=== PATIENT | female | born 1995 | race Caucasian/White ===

== ENCOUNTER 2017-05-02 20:19 | Observation (INO) | payer OTHER ==
[2017-05-02 21:37] LABS: ABSOLUTE EOSINOPHILS # (AUTO) 0.1 10^3/uL (0.0-0.6); ABSOLUTE LYMPHOCYTES (AUTO) 1.4 10^3/uL (0.5-4.7); ABSOLUTE MONOCYTES (AUTO) 0.5 10^3/uL (0.1-1.4); ABSOLUTE NEUT (AUTO) 1.6 10^3/uL (1.7-8.2); BASOPHILS % (AUTO) 1.1 % (0-2); EOSINOPHILS % (AUTO) 1.6 % (0-6); HEMATOCRIT 34.9 % (36.0-47.0); HEMOGLOBIN 12.7 g/dL (12.0-15.5); HGB HCT DIFFERENCE 3.2; LYMPHOCYTES % (AUTO) 38.8 % (13-45); MEAN CORPUSCULAR HEMOGLOBIN 33.3 pg (27.0-33.4); MEAN CORPUSCULAR HGB CONC 36.6 g/dL (32.0-36.0); MEAN CORPUSCULAR VOLUME 91 fl (80-97); MONOCYTES % (AUTO) 13.2 % (3-13); RED BLOOD COUNT 3.83 10^6/uL (3.72-5.28); RED CELL DISTRIBUTION WIDTH 12.9 % (11.5-14.0); SEGMENTED NEUTROPHILS % (AUTO) 45.3 % (42-78); WHITE BLOOD COUNT 3.6 10^3/uL (4.0-10.5)
[2017-05-02 21:53] LABS: ALANINE AMINOTRANSFERASE 27 U/L (9-52); ALBUMIN 4.1 g/dL (3.5-5.0); ALKALINE PHOSPHATASE 66 U/L (38-126); ANION GAP 13 (5-19); ASPARTATE AMINO TRANSFERASE 16 U/L (14-36); BILIRUBIN,DIRECT 0.3 mg/dL (0.0-0.4); BILIRUBIN,TOTAL 1.5 mg/dL (0.2-1.3); BLOOD UREA NITROGEN 10 mg/dL (7-20); CALCIUM 9.3 mg/dL (8.4-10.2); CARBON DIOXIDE 23 mmol/L (22-30); CHLORIDE 102 mmol/L (98-107); GLUCOSE 95 mg/dL (75-110); POTASSIUM 3.9 mmol/L (3.6-5.0); SODIUM 137.8 mmol/L (137-145); TOTAL PROTEIN 7.1 g/dL (6.3-8.2)
[2017-05-02] MEDS ORDERED: ONDANSETRON HCL INJ/PF 4 MG/2 ML SDV ONE (22:02)
[2017-05-02] MEDS ORDERED: DEXTROSE 5%-LACTATED RINGERS 500 ML IV ONE (22:30)
[2017-05-02] MEDS ORDERED: ONDANSETRON HCL INJ/PF 4 MG/2 ML SDV IV ONE (22:30)
[2017-05-02] MEDS ORDERED: RINGERS SOLUTION,LACTATED 500 ML IV ONE (22:30)
[2017-05-02] MEDS: DEXTROSE 5%-LACTATED RINGERS 1,000 ML IV PRN (22:41)
[2017-05-03] MEDS: DEXTROSE 5%-LACTATED RINGERS 1,000 ML IV PRN (03:54)
[2017-05-03] MEDS ORDERED: LOPERAMIDE HCL 2 MG CAPSULE PO PRN (05:24)
[2017-05-03] MEDS ORDERED: LOPERAMIDE HCL 2 MG CAPSULE PO ONE (05:30)
[2017-05-03] MEDS ORDERED: LOPERAMIDE HCL 2 MG CAPSULE ONE (05:31)
--- NOTE | 2017-05-03 09:41 | PDOC PROGRESS REPORT ---
Subjective Progress Note for:: 05/03/17 Subjective:: Pt no longer vomiting and diarrhea resolved with imodium. Has not tried food yet. Denies vag bleeding or pelvic pain. Physical Exam - Physical Exam Vital Signs: Temp Pulse Resp BP Pulse Ox 98.1 F 72 14 98/58 L 100 05/03/17 07:46 05/03/17 07:46 05/03/17 07:46 05/03/17 07:46 05/03/17 07:46 Intake & Output 05/02/17 05/03/17 05/04/17 06:59 06:59 06:59 Intake Total 0 Balance 0 Weight 42.7 kg General appearance: PRESENT: no acute distress GI/Abdominal exam: PRESENT: normal bowel sounds, soft. ABSENT: distended, guarding, mass, organolmegaly, rebound, tenderness Result Laboratory Results: 05/02/17 21:10 05/02/17 21:10 05/02/17 05/02/17 05/02/17 21:10 21:10 21:10 WBC 3.6 L RBC 3.83 Hgb 12.7 Hct 34.9 L MCV 91 MCH 33.3 MCHC 36.6 H RDW 12.9 Plt Count 239 Seg Neutrophils % 45.3 Lymphocytes % 38.8 Monocytes % 13.2 H Eosinophils % 1.6 Basophils % 1.1 Absolute Neutrophils 1.6 L Absolute Lymphocytes 1.4 Absolute Monocytes 0.5 Absolute Eosinophils 0.1 Absolute Basophils 0.0 Sodium 137.8 Potassium 3.9 Chloride 102 Carbon Dioxide 23 Anion Gap 13 BUN 10 Creatinine 0.50 L Est GFR ( Amer) > 60 Est GFR (Non-Af Amer) > 60 Glucose 95 Calcium 9.3 Total Bilirubin 1.5 H AST 16 ALT 27 Alkaline Phosphatase 66 Total Protein 7.1 Albumin 4.1 TSH 3.66 Assessment & Plan - Diagnosis (1) Hyperemesis Plan: trial of bland diet....if tolerates can heplock iv and change to po antiemetics
[2017-05-03 20:22] VITALS: BP 101/72
--- NOTE | 2017-05-03 20:58 | DISCHARGE SUMMARY E ---
Discharge Summary NAME: ALL WALKER : 1995 AGE: 22Y ADMITTED: 05/02/2017 DISCHARGED: 05/03/2017 INDICATION FOR ADMISSION: Nausea, vomiting, and diarrhea with dehydration and early . HOSPITAL COURSE: The patient is a 22-year-old G-2, P-1, who is admitted at 5+ weeks gestation. She had a several day history of nausea, vomiting, and diarrhea. She had apparently been at [facility] and received IV fluids there prior to this. During the course of her stay, she was initially n.p.o. Her diet was advanced and she, by the time of discharge, was tolerating p.o. She did receive a one-time dose of Imodium. By the time of discharge she was tolerating p.o. and not having any nausea, vomiting, or diarrhea. Her labs on admission were unremarkable. DISCHARGE DIAGNOSIS: Early with nausea, vomiting, and diarrhea, now resolved. DISCHARGE MEDICATIONS: 1. Phenergan 25 mg 1/2 to 1 p.o. q.i.d. p.r.n. #30, no refills. 2. Patient does have vitamins at home which she will continue. 3. She was advised that she may take over the counter B6 and Unisom for nausea as well. FOLLOWUP: 1. She will follow up in Clinic next week. 2. She will follow up sooner should problems arise. DICTATING PHYSICIAN: CRISTIAN COSME M.D. [id number] PHY#: [id number] ID: [id number] JOB#: [id number] ACCT: [id number] cc:CRISTIAN COSME M.D. >
== END 2017-05-03 20:57 | disposition home or self-care (01) ==
LOC: 2S 20:19
PROVIDERS: ADMIT Obstetrics & Gynecology; ATTEND Obstetrics & Gynecology
DX: O21.0 Mild hyperemesis gravidarum (principal); R19.7 Diarrhea, unspecified; O26.891 Other specified pregnancy related conditions, first trimester; Z3A.01 Less than 8 weeks gestation of pregnancy
CPT/HCPCS: 36415; 84443; 85025; 80053; G0378 ×2; G0379; J2405; J7120

== ENCOUNTER 2017-10-29 11:24 | Outpatient (CLI) | payer OTHER ==
[2017-10-29 12:27] LABS: AMNISURE (ROM) NEGATIVE (NEGATIVE)
[2017-10-29 12:27] LABS: APPEARANCE,URINE CLOUDY; BILIRUBIN,URINE NEGATIVE (NEGATIVE); COLOR,URINE YELLOW; GLUCOSE, URINE NEGATIVE (NEGATIVE); KETONES,URINE NEGATIVE (NEGATIVE); LEUKOCYTE ESTERASE,URINE LARGE (NEGATIVE); NITRITE,URINE POSITIVE (NEGATIVE); PROTEIN,URINE 100 mg/dL (NEGATIVE); URINE SPECIFIC GRAVITY 1.019
[2017-10-29 12:40] LABS: URINE AMPHETAMINES SCREEN NEGATIVE; URINE BARBITURATES SCREEN NEGATIVE; URINE BENZODIAZEPINES SCREEN NEGATIVE; URINE COCAINE SCREEN NEGATIVE; URINE MARIJUANA (THC) SCREEN NEGATIVE; URINE METHADONE SCREEN NEGATIVE; URINE PHENCYCLIDINE SCREEN NEGATIVE
[2017-10-29] MEDS ORDERED: CEFTRIAXONE 1 GM/D5W RTU 1 GM/50 ML RTUPB IV ONE (12:46)
[2017-10-29] MEDS ORDERED: RINGERS SOLUTION,LACTATED 1,000 ML IV PRN (12:46)
[2017-10-29] MEDS ORDERED: CEFTRIAXONE INJ 1000 MG VIAL ONE (12:59)
== END 2017-10-29 15:27 | disposition home or self-care (01) ==
LOC: LC 11:24
PROVIDERS: ATTEND Obstetrics & Gynecology
PROC: 4A1HXCZ Monitoring of Products of Conception, Cardiac Rate, External Approach (ICD-10-PCS; principal; 2017-10-29)
DX: O23.43 Unspecified infection of urinary tract in pregnancy, third trimester (principal); O47.03 False labor before 37 completed weeks of gestation, third trimester; Z3A.31 31 weeks gestation of pregnancy
CPT/HCPCS: 59899; 84112; 87086; 87088; 81001; 87186; 80307; J0696

== ENCOUNTER 2017-12-06 16:42 | Outpatient (CLI) | payer OTHER ==
[2017-12-06 17:27] LABS: APPEARANCE,URINE SLIGHTLY-CLOUDY; BILIRUBIN,URINE NEGATIVE (NEGATIVE); COLOR,URINE YELLOW; GLUCOSE, URINE NEGATIVE (NEGATIVE); KETONES,URINE NEGATIVE (NEGATIVE); LEUKOCYTE ESTERASE,URINE TRACE (NEGATIVE); NITRITE,URINE NEGATIVE (NEGATIVE); PROTEIN,URINE NEGATIVE (NEGATIVE); URINE SPECIFIC GRAVITY 1.029
[2017-12-06 17:34] LABS: AMNISURE (ROM) NEGATIVE (NEGATIVE)
[2017-12-06 17:43] LABS: URINE AMPHETAMINES SCREEN NEGATIVE; URINE BARBITURATES SCREEN NEGATIVE; URINE BENZODIAZEPINES SCREEN NEGATIVE; URINE COCAINE SCREEN NEGATIVE; URINE MARIJUANA (THC) SCREEN NEGATIVE; URINE METHADONE SCREEN NEGATIVE; URINE PHENCYCLIDINE SCREEN NEGATIVE
--- NOTE | 2017-12-06 18:04 | Non Stress Test Report ---
Non Stress Test Datetime Report Generated by CPN: 12/06/2017 18:04 DEMOGRAPHIC EGA NST: 36.6 INDICATION Indication for Study: Ordered by Provider MONITORING Monitor Explained: Monitor Explained; Test Explained; Patient Verbalized Understanding Time on Monitor: 12/06/2017 16:59 Time off Monitor: 12/06/2017 17:50 NST Duration: 51 NST INTERVENTIONS NST Interventions: PO Hydration; Reposition Patient Physician Notified NST: Dr. Funez BABY A: [id number] BABY A Movement : Present Contraction Frequency : none FHR Baseline : 140 Accelerations : 15X15 Decelerations : None Variability : Moderate 6-25bpm NST Review: Meets Criteria for Reactive NST NST Review and Verified By : Yessi Sweet RNC NST Results: Reactive NST REPORT Report Trigger: Send Report
== END 2017-12-06 18:04 | disposition home or self-care (01) ==
LOC: LC 16:42
PROVIDERS: ATTEND Obstetrics & Gynecology
PROC: 4A1HXCZ Monitoring of Products of Conception, Cardiac Rate, External Approach (ICD-10-PCS; principal; 2017-12-06)
DX: O47.03 False labor before 37 completed weeks of gestation, third trimester (principal); Z3A.36 36 weeks gestation of pregnancy
CPT/HCPCS: 59025; 80307; 81005; 84112

== ENCOUNTER 2017-12-14 14:30 | Outpatient (CLI) | payer OTHER ==
--- NOTE | 2017-12-14 14:57 | Non Stress Test Report ---
Non Stress Test Datetime Report Generated by CPN: 12/14/2017 14:56 DEMOGRAPHIC EGA NST: 38.0 INDICATION Indication for Study: Ordered by Provider MONITORING Monitor Explained: Monitor Explained; Test Explained; Patient Verbalized Understanding Time on Monitor: 12/14/2017 14:38 Time off Monitor: 12/14/2017 14:58 NST Duration: 20 NST INTERVENTIONS NST Interventions: PO Hydration; Reposition Patient Physician Notified NST: J Singh CNM BABY A: [id number] BABY A Movement : Present Contraction Frequency : 0 FHR Baseline : 135 Accelerations : 15X15 Decelerations : None Variability : Moderate 6-25bpm NST Review: Meets Criteria for Reactive NST NST Review and Verified By : Robbie Cornejo RNC NST Results: Reactive NST REPORT Report Trigger: Send Report
== END 2017-12-14 15:03 | disposition home or self-care (01) ==
LOC: LC 14:30
PROVIDERS: ATTEND Obstetrics & Gynecology
PROC: 4A1HXCZ Monitoring of Products of Conception, Cardiac Rate, External Approach (ICD-10-PCS; principal; 2017-12-14)
DX: Z34.83 Encounter for supervision of other normal pregnancy, third trimester (principal)
CPT/HCPCS: 59025

== ENCOUNTER 2017-12-21 04:19 | Inpatient (IN) | payer OTHER ==
[2017-12-21 04:54] LABS: APPEARANCE,URINE CLEAR; BILIRUBIN,URINE NEGATIVE (NEGATIVE); COLOR,URINE YELLOW; GLUCOSE, URINE NEGATIVE (NEGATIVE); KETONES,URINE NEGATIVE (NEGATIVE); LEUKOCYTE ESTERASE,URINE NEGATIVE (NEGATIVE); NITRITE,URINE NEGATIVE (NEGATIVE); PROTEIN,URINE NEGATIVE (NEGATIVE); URINE SPECIFIC GRAVITY 1.018
[2017-12-21 04:58] LABS: AMNISURE (ROM) NEGATIVE (NEGATIVE)
[2017-12-21 05:13] LABS: URINE AMPHETAMINES SCREEN NEGATIVE; URINE BARBITURATES SCREEN NEGATIVE; URINE BENZODIAZEPINES SCREEN NEGATIVE; URINE COCAINE SCREEN NEGATIVE; URINE MARIJUANA (THC) SCREEN NEGATIVE; URINE PHENCYCLIDINE SCREEN NEGATIVE
--- NOTE | 2017-12-21 06:00 | Non Stress Test Report ---
Non Stress Test Datetime Report Generated by CPN: 12/21/2017 05:59 DEMOGRAPHIC Test Number: 3 EGA NST: 39.0 INDICATION Indication for Study: Ordered by Provider MONITORING Monitor Explained: Monitor Explained; Test Explained; Patient Verbalized Understanding Time on Monitor: 12/21/2017 04:39 Time off Monitor: 12/21/2017 05:50 NST Duration: 71 NST INTERVENTIONS NST Interventions: PO Hydration Physician Notified NST: Dr Herman BABY A: [id number] BABY A Movement : Present Contraction Frequency : 2.5-5 FHR Baseline : 135 Accelerations : 15X15 Decelerations : Variable Variability : Moderate 6-25bpm NST Review: Meets Criteria for Reactive NST NST Review and Verified By : ANNABELLA Sapp NSSusan Results: Reactive NST REPORT Report Trigger: Send Report
[2017-12-21] MEDS ORDERED: RINGERS SOLUTION,LACTATED 1,000 ML IV ONE (06:56)
[2017-12-21] MEDS ORDERED: RINGERS SOLUTION,LACTATED 1,000 ML IV PRN (06:56)
[2017-12-21] MEDS ORDERED: FENTANYL CITRATE INJ/PF 100 MCG/2 ML AMPUL ONE (07:24)
[2017-12-21] MEDS ORDERED: EPHEDRINE SULFATE INJ 50 MG/1 ML AMPULE ONE (07:24)
[2017-12-21] MEDS ORDERED: PHENYLEPHRINE HCL INJ/PF 10 MG/1 ML SDV ONE (07:24)
[2017-12-21 07:25] LABS: ABSOLUTE BASOPHILS # (AUTO) 0.1 10^3/uL (0.0-0.2); ABSOLUTE LYMPHOCYTES (AUTO) 1.5 10^3/uL (0.5-4.7); ABSOLUTE MONOCYTES (AUTO) 0.5 10^3/uL (0.1-1.4); ABSOLUTE NEUT (AUTO) 8.6 10^3/uL (1.7-8.2); BASOPHILS % (AUTO) 0.5 % (0-2); EOSINOPHILS % (AUTO) 0.1 % (0-6); HEMATOCRIT 31.2 % (36.0-47.0); LYMPHOCYTES % (AUTO) 13.7 % (13-45); MEAN CORPUSCULAR HEMOGLOBIN 32.4 pg (27.0-33.4); MEAN CORPUSCULAR HGB CONC 35.1 g/dL (32.0-36.0); MEAN CORPUSCULAR VOLUME 92 fl (80-97); MONOCYTES % (AUTO) 4.8 % (3-13); PLATELET COUNT 237 10^3/uL (150-450); RED BLOOD COUNT 3.38 10^6/uL (3.72-5.28); RED CELL DISTRIBUTION WIDTH 13.9 % (11.5-14.0); SEGMENTED NEUTROPHILS % (AUTO) 80.9 % (42-78); TOTAL CELLS COUNTED % (AUTO) 100 %; WHITE BLOOD COUNT 10.6 10^3/uL (4.0-10.5)
[2017-12-21] MEDS ORDERED: BUPIVACAINE HCL 0.25 % INJ/PF (2.5 MG/1 ML) 30 ML VIAL ONE (07:25)
[2017-12-21] MEDS ORDERED: FENTANYL/BUPIVACAINE/NS/PF 200 MCG/100 ML RTUINJ EPI ONE (07:25)
[2017-12-21] MEDS ORDERED: OXYTOCIN/NORMAL SALINE 20 UNIT/1,000 ML RTUINJ ONE (07:26)
[2017-12-21] MEDS ORDERED: LIDOCAINE 1% INJ-PF (10 MG/ML) 30 ML SDV ONE (07:26)
[2017-12-21] MEDS ORDERED: MISOPROSTOL 0.2 MG TABLET ONE (07:26)
--- NOTE | 2017-12-21 08:34 | Admission Physical ---
Datetime Report Generated by CPN: 12/21/2017 08:34 CURRENT ADMISSION Hx Assessment: The History has been Reviewed and is Current Chief Complaint: Uterine Contractions Indication for Induction: Not Applicable Indication for Induction: Term, Intrauterine Admit Plan: Admit to Unit; Initiate Labor Protocol ALLERGIES Medication Allergies: No Medication Allergies: shellfish derived/MO/Generalized Itc (12/21/2017) Medication Allergies: shellfish derived/MO/Generalized Itc (12/14/2017) Medication Allergies: shellfish derived/MO/Generalized Itc (12/06/2017) Medication Allergies: shellfish derived/MO/Generalized Itc (10/29/2017) Medication Allergies: No Known Allergies (04/19/2015) Latex: No Latex Allergies Food Allergies: Shellfish Environmental Allergies: None OBSTETRICAL HISTORY EDC: 12/28/2017 00:00 : 2 Para: 1 Term: 1 : 0 SAB: 0 IAB: 0 Ectopic: 0 Livin Cesareans: 0 VBACs: 0 Multiple Births: 0 Gestational Diabetes: No Rh Sensitization: No Incompetent Cervix: No JODI: No Infertility: No ART Treatment: No Uterine Anomaly: No IUGR: No Hx Previous C/S: No Macrosomia: No Hx Loss/Stillborn: No PIH: No Hx : No Placenta Previa/Abruption: No Depression/PP Depression: No PTL/PROM: No Post Hemorrhage: No Current Procedures: Ultrasound Obstetrical History Comments: G1 - 2014 - IOL at 38wks for IUGR, , 6lbs 11oz G2 - current SEE RECORDS Alcohol: No Marijuana : No Cocaine: No Other Illicit Drugs: No Cigarettes: Never Smoker. 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 Surgery: No Heart Disease: No Hosp/Surgery: Yes Autoimmune Disorder: No Anesthetic Complications: No Kidney Disease: No Abnormal Pap Smear: No Neuro/Epilepsy: No Psychiatric Disorders: No Other Medical Diseases: No Hepatitis/Liver Disease: No Significant Family History: No Varicosities/Phlebitis: No Trauma/Violence : No Thyroid Dysfunction: No Medical History Comments: Hospitalized for childbirth INFECTIOUS HISTORY Gonorrhea: No Genital Herpes: No Chlamydia: No Tuberculosis: No Syphilis: No Hepatitis: No HIV/AIDS Exposure: No Rash or Viral Illness: No HPV: No PHYSICAL EXAM General: Normal HEENT: Normal Neurologic: Normal Thyroid: Deferred Heart: Normal Lungs: Normal Breast: Deferred Back: Normal Abdomen: Normal Genitourinary Exam: Deferred Extremities: Normal DTRs: Normal Pelvic Type: Adequate Physical Exam Comments: Gravid Vital Signs: Reviewed; Within Normal Limits VAGINAL EXAM Dilatation: 4 Effacement: 90 Station: -1 MEMBRANES Membranes: Intact FETUS A EGA: 39.0 Monitoring: External US FHR- Baseline: 130 Variability: Moderate 6-25bpm Accelerations: 15X15 Decelerations: None Presentation: Vertex Admit Comment: Admitted in labor GBS-negative Epidural in place Anticipate PLANS FOR LABOR AND DELIVERY Labor and Delivery: None Pain Management: Epidural Feeding Preference: Breast Benefit of Breast Feed Discussed: Yes Circumcision: Yes INFORMED CONSENT Assignment: Sarahy Thomas MD Signature: with User ID: Levy : with User ID: Levy : I personally evaluated and examined the patient in conjunction with the MLP and agree with the assessment, treatment plan and disposition.
--- NOTE | 2017-12-21 09:23 | L&D Progress Notes ---
PROGRESS NOTES Datetime Report Generated by CPN: 12/21/2017 09:23 PROGRESS NOTE Impression: Reassuring Heart Rate Procedures: Artificial ROM; Sterile Vag Exam Plan: Continue Present Management Vital Signs : Reviewed; Within Normal Limits Comment: SVE with AROM with clear fluid. Will consider augmentation if labor does not progress over next hour. VAGINAL EXAM Dilatation: 3 Dilatation: 4 Effacement: 85 Effacement: 90 Station: 0 Station: -1 MEMBRANES Membranes: Ruptured Membranes: Intact Amniotic Fluid Color: Clear FETUS A FHR - Baseline: 125 Monitoring: External US Variability: Moderate 6-25bpm Accelerations: 15X15 Decelerations: None FHR Category: Category I : 39.0 : 39.0 Presentation: Vertex SIGNATURE SIGNATURE: ,[id number];,[id number];,[id number] SIGNATURE: ,[id number];,[id number] SIGNATURE: ,[id number] SIGNATURE: ,[id number] SIGNATURE: ,[id number] Assignment: Sarahy Thomas MD Signature: with User ID: [email or web address] : with User ID: Levy : I personally evaluated and examined the patient in conjunction with the MLP and agree with the assessment, treatment plan and disposition. : I personally evaluated and examined the patient in conjunction with the MLP and agree with the assessment, treatment plan and disposition.
[2017-12-21 10:13] LABS: URINE METHADONE SCREEN NEGATIVE
[2017-12-21] MEDS: OXYTOCIN/NORMAL SALINE 20 UNIT/1,000 ML RTUINJ IV PRN ×2 (13:19→14:42)
--- NOTE | 2017-12-21 14:10 | Warning Signs in Babies ---
VOD Warning Signs Datetime Report Generated by [facility]: 12/21/2017 14:10 VOD#608 -Warning Signs in Babies: Viewed with Parent(s)/Family (10/29/2017 11:44:ANNABELLA Mack)
--- NOTE | 2017-12-21 14:30 | Warning Signs in Babies ---
VOD Warning Signs Datetime Report Generated by [facility]: 12/21/2017 14:30 VOD#608 -Warning Signs in Babies: Viewed with Parent(s)/Family (12/21/2017 13:45:ANNABELLA Mack)
[2017-12-21] MEDS ORDERED: PROMETHAZINE HCL INJ 25 MG/1 ML VIAL IV PRN (14:57)
[2017-12-21] MEDS ORDERED: PROMETHAZINE HCL 25 MG TABLET PO PRN (14:57)
[2017-12-21] MEDS ORDERED: MAGNESIUM HYDROXIDE SUSP 30 ML UDCUP PO PRN (14:57)
[2017-12-21] MEDS ORDERED: PSEUDOEPHEDRINE HCL 30 MG TABLET PO PRN (14:57)
[2017-12-21] MEDS ORDERED: BENZOCAINE/MENTHOL AEROSOL SPRAY 56 ML TOP PRN (14:57)
[2017-12-21] MEDS ORDERED: MEASLES,MUMPS&RUBELLA VACC/PF 0.5 ML VIAL SUBCUT PRN (14:57)
[2017-12-21] MEDS ORDERED: DIBUCAINE 1% OINTMENT 28 GM TP PRN (14:57)
[2017-12-21] MEDS ORDERED: DIPH/PERTUSS(ACELL)/TETANUS VAC/PF 0.5 ML SYR (>=10YO) IM PRN (14:57)
[2017-12-21] MEDS ORDERED: DIPHENHYDRAMINE HCL 25 MG CAPSULE PO PRN (14:57)
[2017-12-21] MEDS ORDERED: ZOLPIDEM TARTRATE 5 MG TABLET PO PRN (14:57)
[2017-12-21] MEDS ORDERED: GLYCERIN/WITCH HAZEL LEAF 1 EACH MED..PAD TP PRN (14:57)
[2017-12-21] MEDS ORDERED: PROMETHAZINE HCL 25 MG SUPP.RECT PR PRN (14:57)
[2017-12-21] MEDS ORDERED: ACETAMINOPHEN WITH CODEINE #3 TABLET PO PRN ×2 (14:57)
[2017-12-21] MEDS ORDERED: OXYTOCIN/NORMAL SALINE 20 UNIT/1,000 ML RTUINJ IV PRN (14:57)
[2017-12-21] MEDS ORDERED: ACETAMINOPHEN 650 MG SUPP.RECT PR PRN (14:57)
[2017-12-21] MEDS ORDERED: NA PHOS,M-B/NA PHOS,DI-BA (ADULT) 133 ML ENEMA PR PRN (14:57)
[2017-12-21] MEDS ORDERED: IBUPROFEN 800 MG TABLET ONE (15:27)
[2017-12-21] MEDS: DOCUSATE SODIUM 100 MG CAPSULE PO SCH (18:27)
[2017-12-21] MEDS: FERROUS SULFATE 325 MG TABLET PO SCH (18:27)
[2017-12-21] MEDS: IBUPROFEN 800 MG TABLET PO SCH (21:54)
[2017-12-21] MEDS: FAMOTIDINE 20 MG TABLET PO SCH (21:55)
[2017-12-22] MEDS: IBUPROFEN 800 MG TABLET PO SCH ×3 (06:06→21:02)
[2017-12-22 07:27] LABS: HEMATOCRIT 29.7 % (36.0-47.0); HEMOGLOBIN 10.4 g/dL (12.0-15.5); MEAN CORPUSCULAR HEMOGLOBIN 32.5 pg (27.0-33.4); MEAN CORPUSCULAR VOLUME 93 fl (80-97); PLATELET COUNT 214 10^3/uL (150-450)
--- NOTE | 2017-12-22 09:02 | Delivery Summary ---
Del Sum A-C Datetime Report Generated by CPN: 12/22/2017 09:01 DELIVERY PERSONNEL DELIVERY PERSONNEL: [id number] Delivery Doctor:: Sarahy Thomas MD Labor and Delivery Nurse:: ANNABELLA Mack Nursery Nurse:: ANNABELLA Mcclelland Student Observers:: [facility] Nursing students x2 Sizer Hand/RELAY ASSEMBLER: Rosalba Parish, [employer] SET UP OPERATOR Sizer Hand/RELAY ASSEMBLER: Kalee Baxter CNA II MATERNAL INFORMATION Delivery Anesthesia: Epidural Medications After Delivery: Pitocin Bolus-Please Comment Meds After Delivery Comment: Pitocin 20 units in 1000 ml nss open for bolus Maternal Complications: None Provider Comments: VMI delivered in Direct OP presentation. Loose nuchal cord easily delivered through. Shoulders and body delivered without difficulty. Cord doubly clamped and infant to maternal abd for NRP. Placenta delivered intact spontaneously. FF at U. No perineal lacerations. Good hemostasis. Mother and baby stable upon provider leaving the room. LABOR SUMMARY EDC: 12/28/2017 00:00 No. Babies in Womb: 1 Attempted: No Labor Anesthesia: Epidural LABOR INFORMATION Reason for Induction: Not Applicable Onset of Labor: 12/21/2017 06:50 Complete Dilatation: 12/21/2017 12:47 Oxytocin: N/A Group B Beta Strep: Negative Steroids Given: None Reason Steroids Not Administered: Not Applicable MEMBRANES Membranes Rupture Method: Artificial Rupture of Membranes: 12/21/2017 09:15 Length of Rupture (hr): 4.40 Amniotic Fluid Color: Clear Amniotic Fluid Amount: Small Amniotic Fluid Odor: Normal STAGES OF LABOR Stage 1 hr: 5 Stage 1 min: 57 Stage 2 hr: 0 Stage 2 min: 52 Stage 3 hr: 0 Stage 3 min: 3 Total Time in Labor hr: 6 Total Time in Labor min: 52 VAGINAL DELIVERY Episiotomy: None Laceration #1: None Laceration Extension #1: N/A Laceration Repair: Not Applicable Sponge Count Correct: Yes Sharps Count Correct: Yes CSECTION DELIVERY Primary Indication: N/A Secondary Indication: N/A CSection Incidence: N/A Labor: N/A Elective: N/A CSection Incision: N/A BABY A INFORMATION Infant Delivery Date/Time: 12/21/2017 13:39 Method of Delivery: Vaginal Born in Route : No : N/A Forceps: N/A Vacuum Extraction: N/A Shoulder Dystocia : No PRESENTATION/POSITION BABY A Presentation: Cephalic Presentation: Cephalic Presentation: Cephalic Presentation: Cephalic Presentation: Cephalic Cephalic Presentation: Vertex Vertex Position: Right Occipital Posterior Breech Presentation: N/A PLACENTA INFORMATION BABY A Placenta Delivery Time : 12/21/2017 13:42 Placenta Method of Delivery: Spontaneous Placenta Status: Delivered SCORES BABY A Heart Rate 1 min: >100 bpm Resp Effort 1 min: Good Cry Reflex Irritability 1 min: Cough or Sneeze or Pulls Away Muscle Tone 1 min: Active Motion Color 1 min: Blue/Pale Resuscitation Effort 1 min: N/A; Tactile Stimulation SCORE 1 MIN: 8 Heart Rate 5 min: >100 bpm Resp Effort 5 min: Good Cry Reflex Irritability 5 min: Cough or Sneeze or Pulls Away Muscle Tone 5 min: Active Motion Color 5 min: Body Garza[place] Ii, Extremities Blue Resuscitation Effort 5 min: N/A SCORE 5 MIN: 9 INFANT INFORMATION BABY A Gestational Age at Delivery: 39.0 Gestational Status: Full Term- 39- 40.6 Weeks Infant Outcome : Liveborn Condition : Stable Infant Sex: Male IDENTIFICATION BABY A Infant Verification Date/Time: 12/21/2017 13:47 ID Band Number: [id number] Mother's Name Verified: Yes Infant RN Verifying : J Field RN Additional [facility]ifying Personnel[facility] WEIGHT/LENGTH BABY A Birthweight (gm): 3180 Weight (lb): 7 Infant Weight (oz): 0 Infant Length (in): 20.00 Infant Length (cm): 50.80 CORD INFORMATION BABY A No. Cord Vessels: 3 Nuchal Cord : Around Neck x1, Loose Cord Blood Taken: Yes-For Eval (Mom's Blood Type - or O+) Suction: None ASSESSMENT BABY A Complications: Multiple Variable Decels Physical Findings at Delivery: Caput Succedaneum; Molding of the Head Respirations: Appears Normal Skin to Skin: Yes Skin to Skin: Yes Skin to Skin Time (min): 45 Decorating Inspector/ALS Called : No Care By: Igor Skinner [facility] Transferred To: Remains with Mother BABY B INFORMATION : N/A SIGNATURES Signature: with User ID: [email or web address] : I personally evaluated and examined the patient in conjunction with the MLP and agree with the assessment, treatment plan and disposition. : I personally evaluated and examined the patient in conjunction with the MLP and agree with the assessment, treatment plan and disposition.
[2017-12-22] MEDS: FERROUS SULFATE 325 MG TABLET PO SCH ×2 (09:47→18:16)
[2017-12-22] MEDS: SENNOSIDES/DOCUSATE 8.6-50 MG 1 EACH TABLET PO SCH (09:47)
[2017-12-22] MEDS: PRENATAL VITAMIN W DHA CAPSULE PO SCH (09:47)
[2017-12-22] MEDS: DOCUSATE SODIUM 100 MG CAPSULE PO SCH ×2 (09:48→18:16)
[2017-12-22] MEDS: FAMOTIDINE 20 MG TABLET PO SCH ×2 (09:48→21:03)
--- NOTE | 2017-12-22 10:22 | PDOC PROGRESS REPORT ---
Subjective-OB Progress Note for:: 12/22/17 Subjective: Day 1 s/p Denies concerns, voiding without difficulty, lochia is stable, pain well controlled. Physical Exam (OB) Vital Signs: Temp Pulse Resp BP Pulse Ox 98.4 F 63 16 119/70 98 12/22/17 07:20 12/22/17 07:20 12/22/17 07:20 12/22/17 07:20 12/22/17 07:20 Intake & Output 12/21/17 12/22/17 12/23/17 06:59 06:59 06:59 Weight 61.3 kg - Lochia Lochia Amount: Small 10-25 ml Lochia Color: Rubra/Red - Abdomen Description: Soft, Round Hernia Present: No Fundal Description: Firm, Midline Fundal Height: u/u - u/2 Objective-Diagnostic Laboratory: 12/22/17 07:12 12/22/17 07:12 WBC 10.0 RBC 3.20 L Hgb 10.4 L Hct 29.7 L MCV 93 MCH 32.5 MCHC 35.0 RDW 14.0 Plt Count 214 Assessment and Plan(PN) - Assessment and Plan (1) Acute blood loss anemia Is this a current diagnosis for this admission?: Yes Plan: ferrous sulfate increase dietary iron (2) Hyperemesis Is this a current diagnosis for this admission?: Yes Plan: n/a delivered (3) Vaginal delivery Is this a current diagnosis for this admission?: Yes Plan: routine pp care - Time Spent with Patient Time with patient: Less than 15 minutes Critical Time spent with patient: Less than 15 minutes Medications reviewed and adjusted accordingly: Yes - Disposition Anticipated Discharge: Home Within: within 24 hours
[2017-12-23] MEDS: IBUPROFEN 800 MG TABLET PO SCH (05:21)
[2017-12-23 08:48] VITALS: BP 111/75
--- NOTE | 2017-12-23 08:50 | PDOC DISCHARGE SUMMARY ---
Final Diagnosis Discharge Date: 12/23/17 - Final Diagnosis (1) Acute blood loss anemia Is this a current diagnosis for this admission?: Yes (2) Hyperemesis Is this a current diagnosis for this admission?: Yes (3) Vaginal delivery Is this a current diagnosis for this admission?: Yes Discharge Data - Discharge Medication Prescriptions: Docusate Sodium [Colace 100 mg Capsule] 100 mg PO BID #60 capsule Ferrous Sulfate [Feosol 325 mg Tablet] 325 mg PO BID #60 tablet Ibuprofen [Motrin 800 mg Tablet] 800 mg PO Q8 #60 tablet Home Medications: [id number]/Iron/Folic Acid/Dha [Prena1 Jhoana Softgel] 1 cap PO DAILY 04/19/15 Docusate Sodium [Colace 100 mg Capsule] 100 mg PO BID #60 capsule 12/23/17 Ferrous Sulfate [Feosol 325 mg Tablet] 325 mg PO BID #60 tablet 12/23/17 Ibuprofen [Motrin 800 mg Tablet] 800 mg PO Q8 #60 tablet 12/23/17 Gestational Age: 39 Reason(s) for Admission: Onset of Labor Procedures: NST Intrapartum Procedure(s): Spontaneous Vaginal Delivery - Data Baby 1 Male at 1 minute: 8 at 5 minutes: 9 Weight: 3.175 kg Home with Mother: Yes Complications: No - Diagnosis Test Laboratory: Temp Pulse Resp BP Pulse Ox 98.2 F 71 15 111/75 100 12/23/17 08:26 12/23/17 08:26 12/23/17 08:26 12/23/17 08:26 12/23/17 08:26 12/21/17 12/21/17 12/22/17 04:29 07:15 07:12 RBC 3.38 L 3.20 L Hgb 11.0 L 10.4 L Hct 31.2 L 29.7 L Urine Opiates Screen NEGATIVE - Discharge information/Instructions Discharge Activity: Activity As Tolerated, Pelvic Rest, No tub bath Discharge Diet: Regular Disposition: HOME, SELF-CARE Follow up with: [facility] in: 4, Weeks
[2017-12-23] MEDS: SENNOSIDES/DOCUSATE 8.6-50 MG 1 EACH TABLET PO SCH (09:58)
[2017-12-23] MEDS: DOCUSATE SODIUM 100 MG CAPSULE PO SCH (09:58)
[2017-12-23] MEDS: PRENATAL VITAMIN W DHA CAPSULE PO SCH (09:59)
[2017-12-23] MEDS: FAMOTIDINE 20 MG TABLET PO SCH (09:59)
[2017-12-23] MEDS: FERROUS SULFATE 325 MG TABLET PO SCH (09:59)
== END 2017-12-23 12:51 | disposition home or self-care (01) | DRG 775 ==
LOC: LC 04:19 → LR 06:56 → 2S 16:15
PROVIDERS: ADMIT Obstetrics & Gynecology Gynecology; ATTEND Obstetrics & Gynecology Gynecology
PROC: 10E0XZZ Delivery of Products of Conception, External Approach (ICD-10-PCS; principal; 2017-12-21)
PROC: 10907ZC Drainage of Amniotic Fluid, Therapeutic from Products of Conception, Via Natural or Artificial Opening (ICD-10-PCS; 2017-12-21)
PROC: 4A1HXCZ Monitoring of Products of Conception, Cardiac Rate, External Approach (ICD-10-PCS; 2017-12-21)
DX: O21.0 Mild hyperemesis gravidarum (principal); D62 Acute posthemorrhagic anemia; O99.02 Anemia complicating childbirth; O69.81X0 Labor and delivery complicated by cord around neck, without compression, not applicable or unspecified; Z91.013 Allergy to seafood; Z3A.39 39 weeks gestation of pregnancy; Z37.0 Single live birth
CPT/HCPCS: 36415; 80307; 81005; 84112; 85025; 85027; 86592; 86850; 86900; 86901; 88307; J2370; J2590; J3010; J3490

== ENCOUNTER → 2019-03-29 | Outpatient (CLI) | payer OTHER | LOC: OD 16:32 | PROVIDERS: ATTEND Otolaryngology | DX: J30.9 Allergic rhinitis, unspecified (principal) | CPT/HCPCS: 36415; 82785; 86003 ==